=== PATIENT | female | born 1990 | race Caucasian/White ===

== ENCOUNTER 2023-12-26 10:15 | Outpatient (CLI) | payer OTHER | END 2023-12-26 12:23 | disposition home or self-care (01) | LOC: NST 10:15 | PROVIDERS: ATTEND Obstetrics & Gynecology | DX: Z34.83 Encounter for supervision of other normal pregnancy, third trimester (principal) ==

== ENCOUNTER 2024-01-09 02:15 | Outpatient (CLI) | payer OTHER ==
[~2024-01-09] VITALS: Ht 149.9 cm; Wt 58.5 kg
[2024-01-09 00:12] VITALS: BP 102/70
[2024-01-09] MEDS ORDERED: RINGERS SOLUTION,LACTATED 1,000 ML IV SCH (02:30)
[2024-01-09] MEDS ORDERED: AMPICILLIN SODIUM 2,000 MG VIAL IV ONE (02:30)
[2024-01-09 03:13] VITALS: BP 102/70
[2024-01-09] MEDS ORDERED: PRENATABS RX T1 EACH PO (03:21)
[2024-01-09 03:27] LABS: HEMATOCRIT 35.1 % (36.0-45.00); HEMOGLOBIN 11.6 g/dL (12.0-15.00); MEAN CELL VOLUME 89.5 fL (80.00-100.00); MEAN CORPUSCULAR HEMOGLOBIN 29.7 pg (27.00-32.0); MEAN CORPUSCULAR HGB CONC 33.2 g/dl (32.0-36.0); PLATELET COUNT 301 K/uL (150-450); RED BLOOD COUNT 3.92 M/uL (4.00-6.00); RED CELL DISTRIBUTION WIDTH 14.7 % (11.5-14.5)
[2024-01-09 03:47] LABS: INR 0.95; PARTIAL THROMBOPLASTIN TIME 26.4 SECONDS (22.0-34.0); PROTHROMBIN TIME 10.4 SECONDS (9.0-11.5)
[2024-01-09 03:50] LABS: ALBUMIN 2.7 gm/dL (3.4-5.0); BILIRUBIN TOTAL 0.22 mg/dL (0.3-1.2); CALCIUM 9.6 mg/dL (8.5-10.1); CREATININE SERUM 0.44 mg/dL (0.55-1.02); GFR 163.68; GLOBULINA 3.1 G/DL (2.4-3.5); POTASSIUM 4.16 mEq/L (3.5-5.1); TOTAL PROTEIN 5.8 gm/dL (6.4-8.2)
[2024-01-09 07:27] VITALS: BP 118/78
[2024-01-09] MEDS ORDERED: AMPICILLIN SODIUM 1,000 MG VIAL IV SCH (08:00)
== END 2024-01-09 08:55 | disposition home or self-care (01) ==
LOC: OBS/DEL 02:15 → LDR 02:15 → OB/GYN 02:15 → OBS/DEL 08:55 → LDR 08:55 → OB/GYN 01-10 14:45 → EDSTATUS 01-10 14:45
PROVIDERS: Obstetrics & Gynecology Maternal & Fetal Medicine; ATTEND Obstetrics & Gynecology
DX: O47.1 False labor at or after 37 completed weeks of gestation (principal); Z3A.39 39 weeks gestation of pregnancy

== ENCOUNTER 2024-01-12 08:00 | Inpatient (IN) | payer OTHER ==
[~2024-01-12] VITALS: Ht 149.9 cm; Wt 58.5 kg
[2024-01-12] VITALS (8 sets, daily range): BP systolic 108–125; BP diastolic 65–83
[~2024-01-12 08:00] MED LIST: PRENATABS RX T1 EACH PO
[2024-01-12] MEDS ORDERED: RINGERS SOLUTION,LACTATED 1,000 ML IV SCH (09:15)
[2024-01-12] MEDS ORDERED: AMPICILLIN SODIUM 2,000 MG VIAL IV ONE (09:15)
[2024-01-12 10:48] LABS: HEMATOCRIT 40.4 % (36.0-45.00); HEMOGLOBIN 13.1 g/dL (12.0-15.00); MEAN CELL VOLUME 89.7 fL (80.00-100.00); MEAN CORPUSCULAR HGB CONC 32.4 g/dl (32.0-36.0); PLATELET COUNT 345 K/uL (150-450); RED CELL DISTRIBUTION WIDTH 14.7 % (11.5-14.5)
[2024-01-12 11:00] LABS: INR 0.95; PARTIAL THROMBOPLASTIN TIME 26.4 SECONDS (22.0-34.0); PROTHROMBIN TIME 10.4 SECONDS (9.0-11.5)
[2024-01-12 11:51] LABS: BILIRUBIN TOTAL 0.31 mg/dL (0.3-1.2); CALCIUM 9.6 mg/dL (8.5-10.1); CREATININE SERUM 0.42 mg/dL (0.55-1.02); GFR 172.71; GLOBULINA 3.7 G/DL (2.4-3.5); POTASSIUM 4.39 mEq/L (3.5-5.1); TOTAL PROTEIN 6.7 gm/dL (6.4-8.2)
[2024-01-12] MEDS ORDERED: OXYTOCIN 500 ML IV ONE (12:15)
[2024-01-12] MEDS ORDERED: AMPICILLIN SODIUM 1,000 MG VIAL IV SCH (13:00)
[2024-01-12] MEDS ORDERED: IBUprofen 400 MG TABLET PO PRN (17:00)
[2024-01-12] MEDS ORDERED: OXYTOCIN 1,000 ML IV SCH (17:00)
[2024-01-12] MEDS ORDERED: OxyCODONE HCL/APAP UD (PERCOCET) PO PRN (17:00)
[2024-01-12] MEDS ORDERED: CHLORHEXIDINE GLUCONATE 120 ML BOTTLE TOP ONE (18:15)
[2024-01-12] MEDS ORDERED: ERYTHROMYCIN BASE OPHT 1GM EACH TUBE OP ONE (18:15)
[2024-01-12] MEDS ORDERED: LIDOCAINE HCL 1% 10ML VIAL IJ ONE (18:15)
[2024-01-12] MEDS ORDERED: SENNA/DOCUSATE SODIUM 1 TAB TABLET PO SCH (21:00)
[2024-01-13 00:34] VITALS: BP 118/77
[2024-01-13 15:49] VITALS: BP 103/72
[2024-01-14 03:06] VITALS: BP 108/68
[2024-01-14 08:10] VITALS: BP 106/60
== END 2024-01-14 12:34 | disposition home or self-care (01) | DRG 807 ==
LOC: LDR 08:00 → OB/GYN 18:16
PROVIDERS: ADMIT Obstetrics & Gynecology; ATTEND Obstetrics & Gynecology
PROC: 10E0XZZ Delivery of Products of Conception, External Approach (ICD-10-PCS; principal; 2024-01-12)
PROC: 0UQG7ZZ Repair Vagina, Via Natural or Artificial Opening (ICD-10-PCS; 2024-01-12)
PROC: 4A1HXCZ Monitoring of Products of Conception, Cardiac Rate, External Approach (ICD-10-PCS; 2024-01-12)
DX: O71.4 Obstetric high vaginal laceration alone (principal); O69.81X0 Labor and delivery complicated by cord around neck, without compression, not applicable or unspecified; Z37.0 Single live birth; Z3A.40 40 weeks gestation of pregnancy; Z20.822 Contact with and (suspected) exposure to COVID-19